=== PATIENT | female | born 1970 | race Caucasian/White ===

== ENCOUNTER 2025-06-16 18:49 | Emergency (ER) | payer BC, SELFPAY ==
[2025-06-16 18:58] VITALS: BP 139/100
[2025-06-16 19:16] LABS: Hematocrit 39.5 % (37.0-47.0); Hemoglobin 13.4 g/dL (12.0-16.0); Mean Corp Hgb Conc. 33.9 g/dL (33.0-37.0); Mean Corpuscular Volume 92.1 fL (81.0-99.0); Nucleated Red Blood Cells % 0 %; Platelet Count 216 10^3/uL (130-400); Red Cell Dist. Width 12.5 % (11.5-14.5)
[2025-06-16 19:31] LABS: ALT (SGPT) 21 U/L (0-35); AST (SGOT) 29 U/L (14-36); Albumin 4.6 g/dl (3.5-5.0); Alkaline Phosphatase 45 U/L (38-126); Blood Urea Nitrogen 21 mg/dl (7-17); Calcium 9.6 mg/dl (8.4-10.2); Carbon Dioxide 25 mmol/L (22-30); Chloride 103 mmol/L (98-107); Glucose 89 mg/dl (70-99); Potassium 4.0 mmol/L (3.5-5.1); Sodium 136 mmol/L (135-145); Total Protein 7.4 g/dl (6.3-8.2); eGFR > 60.00
[2025-06-16 19:39] LABS: Troponin I < 0.012 ng/ml
--- NOTE | 2025-06-16 22:30 | ED.GENMED ---
History of Present Illness
General
Chief Complaint: Chest Pain
Source: patient and family
Time Seen by Provider: 06/16/25 21:24
History of Present Illness
History of Present Illness:
55-year-old female presents here with her son-in-law with complaints of intermittent palpitations that she noted yesterday without specific provoking or relieving factors. Today she had a normal day at work but when she got home she noted tingling
in her left arm that would sometimes radiate to the jaw. This has been happening on and off since that time. She denies associated dyspnea, hemoptysis, fever, chills, cough, sore throat, rhinorrhea, swelling, numbness, weakness, abdominal pain,
nausea, vomiting. She also notes a 'spasm' discomfort in her chest with the symptoms. There are no provoking or relieving factors to the symptoms, can last minutes at a time and then fully resolved. Patient notes that she has had a cardiac workup
in the past her family history. She sees her doctor on a regular basis.
Past History
Past History
ED Past Medical History: HTN
ED Past Surgical History: Orthopedic and Other (Breast augmentation)
Social History
Tobacco: Non-smoker
Alcohol: Occasional
Drug: None
Personal:
Living: with family
Employment: Employed
Phy Exam
Physical Exam
Physical Exam:
GENERAL: Alert , in no apparent distress
EYE: pupils equal and reactive
NECK: Supple, no significant adenopathy.
ENT: o/p clr, mmm.
CARDIAC: Regular rate and rhythm .
LUNGS: Clear breath sounds bilaterally, no acute respiratory distress, no wheezes/rales/rhonchi
ABDOMEN: Soft, without focal tenderness, no r/g, no cvat
NEUROLOGICAL: Alert and oriented, no focal neuro deficits
SKIN: Warm and dry, skin intact.
MUSCULOSKELETAL: No edema, well perfused.
PSYCH: Normal and appropriate interaction.
Scores
Heart Score for Chest Pain Patients
STEMI patient?: No
History: Slightly or Non-Suspicious
ECG: Normal
Age: >45 - <65 years
Risk Factors: 1 or 2 Risk Factors
Troponin: </= Normal Limit
Heart Score for Chest Pain Patients: 2
Heart Score Risk: 2.5% MACE over next 6 weeks
Course
Orders/Labs/Results
Orders:
Orders
06/16/25 18:50
Electrocardiogram (*1) Urgent
Reason for Study: Chest Pain
EKG- Treatment ONCE
06/16/25 18:53
Cardiac Monitoring- Treatment ONCE
IV Insert/Care/Rem.- Treatment PRN
CR Chest - 2 Views Urgent
Comment:
Reason For Exam: respiratory distress
O2 Therapy [RESP] Urgent
Titrate/Wean O2 to maintain O2 sat greater than (%): 93
Special Instructions: TO MAINTAIN CONTINUOUS O2 SATS >/= 93%
Pulse Ox/cont/shift [RESP] Urgent
Quantity: 1
Special Instructions: continuous pulse ox
06/16/25 19:10
Complete Blood Count/With Diff Urgent
Comprehensive Metabolic Panel Urgent
NT-proBNP Urgent
Troponin I Urgent
06/16/25 22:28
Troponin I Urgent
06/16/25 22:29
Electrocardiogram (*1) Urgent
Reason for Study: Other
Other Reason for Exam: repeat troponin
EKG- Treatment ONCE
Abnormal Lab Results
06/16/25
19:10
MCH 31.2 H pg
(27.0-31.0)
BUN 21 H mg/dl
(7-17)
06/16/25 19:10
06/16/25 19:10
Vital Signs
Initial and Last Documented VS:
Initial Vital Signs
Temp Pulse Resp BP Pulse Ox
97.7 F 89 20 139/100 95
06/16/25 18:58 06/16/25 18:58 06/16/25 18:58 06/16/25 18:58 06/16/25 18:58
Last Documented Vital Signs
Temp Pulse Resp BP Pulse Ox
97.7 F 67 14 139/100 99
06/16/25 18:58 06/16/25 21:52 06/16/25 21:52 06/16/25 18:58 06/16/25 22:33
*Pulse Oximetry
SaO2: 99
Oxygen Mode of Delivery: Room air
Patient hypoxic: no
*Critical Care Note
Total Time (30-74mins, 75-104mins- exclusive of procedures): Not Applicable
Update Note
Update Note:
Patient presents to the Emergency Department with ____palpitations, arm tingling, chest pain
Number and Complexity of Problems Addressed at the Encounter
� Chronic conditions affecting care:
� Acute Exacerbation and/or Progression of Chronic Illness:
� Differential Diagnosis includes: But not limited to musculoskeletal pain, ACS, PE, arrhythmia, electrolyte disorder, etc. etc.
Amount and/or Complexity of Data to be Reviewed and Analyzed
� I performed an independent evaluation of and my interpretation is:
EKG: Read by me, normal sinus rhythm, normal rate, normal axis, no acute ischemia
CT:
Xrays: Read by radiology NAD
Laboratory Studies: Generally unremarkable
Other:
� Review of other/old records reveals:
� Clinical information was obtained by an independent historian: Son-in-law who is at bedside
� Prescriptions/Medications Considered but not given:
� Further testing considered but not performed:
Risk of Complications and/or Morbidity or Mortality of Patient Management
� Social determinants of health affecting care:
� Discussion with other providers (PCP, Hospitalists, Consultants, etc):
� Escalation of care including admission/observation vs risk of discharge considered: Patient well-appearing, workup here extremely reassuring thus far, repeat troponin pending. Highly doubt PE given lack of estrogen use,
smoking family or personal history, pleuritic chest pain, dyspnea, etc. Symptoms not consistent with abrupt pain noted in dissection. ACS less likely given on and off symptoms and normal examination thus far.
Second troponin unremarkable, patient will be discharged with close follow-up.
ED Attending Note
-
Portions of this chart may have been created with voice recognition software.� Occasional wrong word or��sound alike� substitutions may have occurred due to the inherent limitations of voice recognition software.
Discharge Plan
Departure
Patient Disposition: Home (Routine Discharge)
Date of Disposition: 06/16/25
Time of Disposition: 23:23
Patient with high blood pressure during this ER visit?: Yes
Condition: Good
Discharge Problem:
Chest pain
Instructions: BLOOD PRESSURE, Chest Pain
Prescriptions:
No Action
amlodipine 2.5 MG tablet
2.5 mg PO DAILY Qty: 30 0RF
Referrals:
Miguel Perry MD [Active, Cardiology] - Next open appointment
Jose North DO [Family Provider, Family Practice]
Activity Restrictions/Additional Instructions:
IF YOU DEVELOP PERSISTENT NEW OR CONTINUED PAIN, ANY SHORTNESS OF BREATH, DIZZINESS, SWELLING, OR OTHER WORRISOME SIGNS, PLEASE RETURN TO THE ER IMMEDIATELY!
Interventions
Interventions:
*General Assessment Last Done: 06/16/25 18:58
*Neglect/Abuse Screening Last Done: 06/16/25 18:58
*ED COVID-19 Vaccine History Last Done: 06/16/25 18:58
*ED Influenza Vaccine History Last Done: 06/16/25 18:58
[facility] Risk Assessment Tool Last Done: 06/16/25 21:52
*Risk Screen - Suicide (C-SSRS) Last Done: 06/16/25 18:58
Discharge Date and Time
Print Language: URDU
[2025-06-16 22:59] LABS: Troponin I < 0.012 ng/ml
== END 2025-06-17 00:12 | disposition home or self-care (01) ==
LOC: EMR 18:49
PROVIDERS: EMERGENCY PHYSICIAN Emergency Medicine; FAMILY PHYSICIAN Family Medicine
DX: R07.89 Other chest pain (principal); R00.2 Palpitations; I10 Essential (primary) hypertension
CPT/HCPCS: 99283; 71046; 80053; 83880; 84484; 85025; 93005